=== PATIENT | female | born 1970 | race Caucasian/White ===

== ENCOUNTER 2016-05-16 16:59 | Emergency (ER) | payer MEDICAID ==
[~2016-05-16] VITALS: Ht 170.2 cm; Wt 77.1 kg
[~2016-05-16 16:59] MED LIST: HYDR-971 PO; SULF1TAB24 PO
[2016-05-16 19:11] LABS: BILIRUBIN,URINE NEGATIVE (NEG); GLUCOSE,URINE NEGATIVE (NEG); NITRITE,URINE NEGATIVE (NEG); PH,URINE 6.5; PROTEIN,URINE NEGATIVE (NEG-TRACE); UROBILINOGEN,URINE 0.2 mg/dL (0.2 mg/dL)
[2016-05-16] MEDS: FENTANYL PF 100 MCG/2 ML VIAL. IV PRN ×3 (19:15→20:35)
[2016-05-16 19:18] LABS: BACTERIA,URINE FEW /HPF (0-FEW); RBC,URINE OCC /HPF (0-2); SQUAMOUS EPITHELIAL CELL,UR FEW /LPF; WBC,URINE 0 /HPF (0-4)
[2016-05-16 19:23] LABS: BASO # 0.1 x10^3/uL (0.0-0.2); BASO % 1 % (0-3); EOS % 2 % (0-3); HEMATOCRIT 38.7 % (36.0-47.0); HEMOGLOBIN 12.9 g/dL (12.0-15.5); LYMPH # 2.3 x10^3/uL (1.0-4.8); LYMPH % 39 % (24-48); MEAN CORPUSCULAR HEMOGLOBIN 29 pg (25-35); MEAN CORPUSCULAR HGB CONC 33 g/dL (31-37); MEAN CORPUSCULAR VOLUME 87 fL (79-100); MONO % 6 % (0-9); NEUT % 52 % (31-73); PLATELET COUNT 236 x10^3/uL (140-400); RED BLOOD COUNT 4.44 x10^6/uL (3.50-5.40); WHITE BLOOD COUNT 5.8 x10^3/uL (4.0-11.0)
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
[2016-05-16 19:34] LABS: NEG OBC SER NEG; POS OBC SER POS
[2016-05-16 19:35] LABS: CALCIUM 9.6 mg/dL (8.5-10.1); CREATININE 0.8 mg/dL (0.6-1.0); GFR 77.9; POTASSIUM 4.1 mmol/L (3.5-5.1)
[2016-05-16 19:39] LABS: PROTHROMBIN TIME PATIENT 12.7 SEC (11.7-14.0)
[2016-05-16 19:41] LABS: ALBUMIN 3.6 g/dL (3.4-5.0); ALBUMIN/GLOBULIN RATIO 0.9 (1.0-1.7); TOTAL BILIRUBIN 0.2 mg/dL (0.2-1.0); TOTAL PROTEIN 7.5 g/dL (6.4-8.2)
[2016-05-16] MEDS ORDERED: CONTRAST GIVEN MC PRN (20:00)
[2016-05-16] MEDS ORDERED: IOHEXOL 300 MG/ML 75 ML VIAL IV ONE (20:00)
--- NOTE | 2016-05-16 20:16 | RAD ---
PQRS STATEMENT One or more of the following individualized dose reduction techniques were utilized for this study: 1.Automated exposure control. 2.Adjustment of the mA and/orkVaccording to patient size. 3.Use of iterative reconstruction technique. Indication:ABD PAIN AND BLOATING, HX TUBAL LIGATION PRIOR SENT Reason: abd pain and bloating / Spl. Instructions: / History: Comparison: 05/11/2015 CT abdomen pelvis Technique: multiple contiguous axial images were obtained through the abdomen and pelvis after intravenous administration of iodinated contrast. Coronal and sagittal reformations were created. Findings: The lung bases are clear. The heart size is normal. The liver is normal in size with no focal lesions identified. The gallbladder is nondistended. The pancreas is unremarkable. The spleen and adrenal glands are within normal limits. The kidneys demonstrate no hydronephrosis or mass. The abdominal aorta is normal in caliber. There is no ascites or adenopathy. The appendix is normal. The bowel loops are normal in caliber. The urinary bladder is within normal limits. No destructive osseous lesion is identified. There is an unchanged soft tissue mass within the subcutaneous tissue of the anterior left thigh that measures 3.1 centimeters. This measured 2.8 centimeters on the previous exam from 05/11/2015. There is a left adnexal cyst measuring 3 centimeters in size likely representing an ovarian cyst. Tubal ligation clips are noted. Impression: - No ascites or inflammatory mass. - Normal appendix. - Left ovarian cyst measuring 3 centimeters. - There is a subcutaneous mass in the anterior left side measures 3.1 centimeters compared with 2.8 centimeters on the prior exam from 05/11/2015. Consider ultrasound evaluation and/or biopsy is clinically concerned. Electronically signed by: Santana Fried (May 16, 2016 20:15:45)
[2016-05-16] MEDS ORDERED: MAGNESIUM CITRATE 296 ML SOLUTION. ONE (20:51)
[2016-05-16 20:55] VITALS: BP 120/79
[2016-05-16] MEDS ORDERED: MAGNESIUM CITRATE 296 ML SOLUTION. PO ONE (21:00)
== END 2016-05-16 20:56 | disposition home or self-care (01) ==
LOC: ER 16:59
DX: K59.00 Constipation, unspecified (principal); R14.0 Abdominal distension (gaseous); R10.9 Unspecified abdominal pain; J44.9 Chronic obstructive pulmonary disease, unspecified; Z98.51 Tubal ligation status; Z90.49 Acquired absence of other specified parts of digestive tract; Z86.19 Personal history of other infectious and parasitic diseases; Z98.890 Other specified postprocedural states; Z88.5 Allergy status to narcotic agent
CPT/HCPCS: 36415; 74177; 80053; 81001; 83690; 84703; 85027; 85610; 85730; 96374; 96376; 99285; J3010; Q9967

== ENCOUNTER 2016-05-23 17:15 | Emergency (ER) | payer MEDICAID, OTHER ==
[~2016-05-23] VITALS: Ht 170.2 cm; Wt 77.1 kg
[2016-05-23 17:43] VITALS: BP 156/75
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
[2016-05-23 18:17] LABS: OBC FLU VALID
[2016-05-23] MEDS ORDERED: PROAIR RESPICL90 MCG IH (19:02)
[2016-05-23] MEDS ORDERED: ACET-704 PO (19:02)
[2016-05-23] MEDS ORDERED: BENZ100C PO (19:02)
[2016-05-23] MEDS ORDERED: AZIT250T PO (19:02)
--- NOTE | 2016-05-24 08:55 | RAD ---
Chest, 2 views, 05/23/2016: History: Cough Comparison is made to a study from 03/25/2011. The heart size and pulmonary vascularity are normal. No pulmonary infiltrates are seen. There is no evidence of pleural fluid. IMPRESSION: No acute cardiopulmonary abnormality is detected.
== END 2016-05-23 19:05 | disposition home or self-care (01) ==
LOC: ER 17:15
DX: J20.9 Acute bronchitis, unspecified (principal); J44.9 Chronic obstructive pulmonary disease, unspecified; F41.9 Anxiety disorder, unspecified; Z88.5 Allergy status to narcotic agent; Z86.19 Personal history of other infectious and parasitic diseases; Z90.49 Acquired absence of other specified parts of digestive tract
CPT/HCPCS: 71020; 87804; 99285-25

== ENCOUNTER 2016-07-10 11:50 | Emergency (ER) | payer OTHER ==
[~2016-07-10] VITALS: Ht 170.2 cm; Wt 80.3 kg
[~2016-07-10 11:50] MED LIST changes: +ACET-704 PO; +AZIT250T PO; +BENZ100C PO; +PROAIR RESPICL90 MCG IH
[2016-07-10 13:43] LABS: BILIRUBIN,URINE NEGATIVE (NEG); GLUCOSE,URINE NEGATIVE (NEG); NITRITE,URINE NEGATIVE (NEG); PROTEIN,URINE NEGATIVE (NEG-TRACE); UROBILINOGEN,URINE 0.2 mg/dL (0.2 mg/dL)
[2016-07-10 13:53] LABS: BASO # 0.1 x10^3/uL (0.0-0.2); BASO % 1 % (0-3); EOS % 3 % (0-3); HEMATOCRIT 40.7 % (36.0-47.0); HEMOGLOBIN 13.5 g/dL (12.0-15.5); LYMPH % 47 % (24-48); MEAN CORPUSCULAR HEMOGLOBIN 29 pg (25-35); MEAN CORPUSCULAR HGB CONC 33 g/dL (31-37); MEAN CORPUSCULAR VOLUME 88 fL (79-100); MONO % 8 % (0-9); NEUT % 41 % (31-73); PLATELET COUNT 202 x10^3/uL (140-400); RED BLOOD COUNT 4.65 x10^6/uL (3.50-5.40); RED CELL DISTRIBUTION WIDTH 13.7 % (11.5-14.5); WHITE BLOOD COUNT 6.4 x10^3/uL (4.0-11.0)
[2016-07-10 13:56] LABS: BACTERIA,URINE 0 /HPF (0-FEW); RBC,URINE 0 /HPF (0-2); SQUAMOUS EPITHELIAL CELL,UR OCC /LPF; WBC,URINE 0 /HPF (0-4)
[2016-07-10 13:58] LABS: NEG OBC UR NEG
[2016-07-10 13:59] LABS: POS OBC UR POS
[2016-07-10] MEDS ORDERED: ONDANSETRON PF 4 MG/2 ML VIAL. IV ONE (14:00)
[2016-07-10] MEDS ORDERED: IV NORMAL SALINE 1000ML BAG 1,000 ML IV SCH (14:00)
[2016-07-10] MEDS ORDERED: CONTRAST GIVEN MC PRN (14:00)
[2016-07-10 14:03] LABS: CALCIUM 9.6 mg/dL (8.5-10.1); CREATININE 0.7 mg/dL (0.6-1.0); GFR 90.9; POTASSIUM 3.8 mmol/L (3.5-5.1); PROTHROMBIN TIME PATIENT 12.4 SEC (11.7-14.0)
[2016-07-10 14:08] LABS: TOTAL BILIRUBIN 0.3 mg/dL (0.2-1.0); TOTAL PROTEIN 8.2 g/dL (6.4-8.2)
[2016-07-10] MEDS ORDERED: IOHEXOL 240 MG/ML 50ML VIAL. PO ONE (14:15)
[2016-07-10] MEDS ORDERED: IOHEXOL 300 MG/ML 75 ML VIAL IV ONE (14:15)
[2016-07-10] MEDS ORDERED: MORPHINE SULFATE 4 MG/ML DISP.SYRIN. IV ONE ×2 (14:40→15:30)
[2016-07-10 14:48] LABS: NEG OBC FOB NEG; POS OBC FOB POS
[2016-07-10] MEDS ORDERED: IV DEXTROSE 10% 500 ML IV ONE (15:30)
[2016-07-10 15:41] VITALS: BP 114/77
--- NOTE | 2016-07-10 15:44 | RAD ---
CT of the abdomen and pelvis with contrast, 05/16/2016: History: Lower abdominal pain, previous liver cancer Multidetector CT imaging was performed following oral and IV administration of contrast. Comparison made to a study from 05/16/2016. There is no evidence of a hepatic mass or bile duct dilatation. The left lobe of liver is prominent. No gallbladder abnormality is seen. The pancreas is unremarkable. The spleen is of normal size. There are prominent extrarenal pelves bilaterally. No true hydronephrosis is seen. The abdominal aorta is of normal caliber. No abdominal or pelvic adenopathy is seen. There are surgical clips in the pelvis. There is a 2.5 cm cyst in the left ovary, similar to that seen on the previous study. The bowel loops are nondilated. There is a moderate amount of stool scattered throughout the colon. The appendix is not clearly visualized. No dilated appendix or pericecal inflammatory process is seen. No free fluid or free air is evident in the abdomen or pelvis. A 3.1 cm subcutaneous mass along the anterior aspect of the left hip is unchanged and likely represents a skin lesion such as a sebaceous cyst. IMPRESSION: 1. Unchanged small left ovarian cyst. 2. Stable subcutaneous mass at the left hip. 3. No acute abdominal abnormality is detected. PQRS Compliance Statement: One or more of the following individualized dose reduction techniques were utilized for this examination: 1. Automated exposure control 2. Adjustment of the mA and/or kV according to patient size 3. Use of iterative reconstruction technique
[2016-07-10] MEDS ORDERED: ONDA4TAB10 SL (16:11)
[2016-07-10] MEDS ORDERED: HYDR-971 PO (16:11)
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
== END 2016-07-10 16:20 | disposition home or self-care (01) ==
LOC: ER 11:50
DX: R10.30 Lower abdominal pain, unspecified (principal); R11.0 Nausea; R19.7 Diarrhea, unspecified; J44.9 Chronic obstructive pulmonary disease, unspecified; F17.200 Nicotine dependence, unspecified, uncomplicated; Z98.51 Tubal ligation status; Z90.49 Acquired absence of other specified parts of digestive tract; Z98.890 Other specified postprocedural states; Z88.6 Allergy status to analgesic agent
CPT/HCPCS: 36415; 74177; 80053; 81001; 81025; 82274; 82947; 83690; 85027; 85610; 85730; 96361; 96374; 96375; 96376; 99285; J2270; J2405; J7030; Q9966; Q9967

== ENCOUNTER 2016-07-15 12:28 | Emergency (ER) | payer OTHER ==
[~2016-07-15] VITALS: Ht 170.2 cm; Wt 80.3 kg
[~2016-07-15 12:28] MED LIST changes: +ONDA4TAB10 SL
[2016-07-15 12:46] VITALS: BP 114/77
[2016-07-15] MEDS ORDERED: IV NORMAL SALINE 1000ML BAG 1,000 ML IV ONE (13:15)
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
== END 2016-07-15 13:25 | disposition left against medical advice (07) ==
LOC: ER 12:28
DX: R10.30 Lower abdominal pain, unspecified (principal); J44.9 Chronic obstructive pulmonary disease, unspecified; Z90.49 Acquired absence of other specified parts of digestive tract; Z98.51 Tubal ligation status; Z88.6 Allergy status to analgesic agent
CPT/HCPCS: 99281

== ENCOUNTER 2016-08-23 19:51 | Emergency (ER) | payer OTHER ==
[2016-08-23 20:03] VITALS: BP 121/79
[2016-08-23] MEDS: predniSONE 20 MG TABLET PO ONE (20:45)
[2016-08-23] MEDS: BENZONATATE 100 MG CAPSULE. PO ONE (20:45)
[2016-08-23] MEDS: IPRATRPIUM/ALBUTEROL 0.5/2.5MG 3 ML NEBU. NEB ONE (21:08)
[2016-08-23] MEDS ORDERED: BENZ100C PO (21:29)
[2016-08-23] MEDS ORDERED: PRED50TA PO (21:29)
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
--- NOTE | 2016-08-24 07:48 | RAD ---
Chest, 2 views, 08/23/2016: History: Flulike symptoms, cough Comparison is made to a study from 05/23/2016. The heart size and pulmonary vascularity are normal. No pulmonary infiltrates are seen. There is no evidence of pleural fluid. IMPRESSION: No acute cardiopulmonary abnormality is detected.
== END 2016-08-23 21:40 | disposition home or self-care (01) ==
LOC: ER 19:51
DX: J20.9 Acute bronchitis, unspecified (principal); J44.9 Chronic obstructive pulmonary disease, unspecified; F41.9 Anxiety disorder, unspecified; F17.200 Nicotine dependence, unspecified, uncomplicated; Z88.6 Allergy status to analgesic agent
CPT/HCPCS: 71020; 94250; 94640; 99284; J7512; J7620

== ENCOUNTER 2016-11-18 14:15 | Emergency (ER) | payer OTHER ==
[~2016-11-18] VITALS: Ht 170.2 cm; Wt 80.3 kg
[~2016-11-18 14:15] MED LIST changes: +PRED50TA PO
[2016-11-18 14:27] VITALS: BP 123/82
[2016-11-18] MEDS ORDERED: diphenhydrAMINE HCL 25 MG CAPSULE PO ONE (15:15)
[2016-11-18] MEDS ORDERED: DIPHENHYDRAMINE/ZINC ACETATE 2%/0.1% TOPICAL CREAM 28GM TUBE. TP ONE (15:15)
[2016-11-18] MEDS ORDERED: DIPH25CA58 PO (15:24)
[2016-11-18] MEDS ORDERED: DIPH30CR TP (15:24)
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
== END 2016-11-18 15:55 | disposition home or self-care (01) ==
LOC: ER 14:15
DX: L29.9 Pruritus, unspecified (principal); F41.9 Anxiety disorder, unspecified; J44.9 Chronic obstructive pulmonary disease, unspecified; Z86.19 Personal history of other infectious and parasitic diseases; Z90.49 Acquired absence of other specified parts of digestive tract; Z98.51 Tubal ligation status; Z88.5 Allergy status to narcotic agent
CPT/HCPCS: 99283; Q0163

== ENCOUNTER 2017-01-16 11:29 | Emergency (ER) | payer OTHER ==
[~2017-01-16 11:29] MED LIST changes: +DIPH25CA58 PO; +DIPH30CR TP
[2017-01-16 11:33] VITALS: BP 121/80
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
[2017-01-16] MEDS ORDERED: IBUPROFEN 800 MG TABLET. PO ONE (12:30)
[2017-01-16] MEDS ORDERED: CYCLOBENZAPRINE 10 MG TABLET. PO ONE (12:30)
--- NOTE | 2017-01-16 13:18 | RAD ---
Indication fall. Pain. AP and lateral views of the thoracic spine were obtained as well as a swimmer's view. Vertebral height alignment and disc spaces are normal. No fracture or significant bony finding is seen. There are no significant degenerative changes apparent on plain films. IMPRESSION: Normal plain films of the thoracic spine
--- NOTE | 2017-01-16 13:20 | RAD ---
Indication fall, pain. Lateral AP and odontoid views of the cervical spine were obtained. C1-T2 are identified. Vertebral height is well maintained. There are small osteophytes seen at C5-6. An acute bony finding is not seen. The prevertebral soft tissues appear normal. IMPRESSION: Minimal spondylitic change. No acute finding seen
[2017-01-16] MEDS ORDERED: CYCL10TA2 PO (13:42)
[2017-01-16] MEDS ORDERED: IBUP-1060 PO (13:42)
== END 2017-01-16 13:48 | disposition home or self-care (01) ==
LOC: ER 11:29
DX: M54.6 Pain in thoracic spine (principal); M54.5 Low back pain; M54.2 Cervicalgia; J44.9 Chronic obstructive pulmonary disease, unspecified; Z90.49 Acquired absence of other specified parts of digestive tract; Z98.51 Tubal ligation status; Z88.6 Allergy status to analgesic agent; W17.89XA Other fall from one level to another, initial encounter; Y93.89 Activity, other specified; Y99.8 Other external cause status; Y92.028 Other place in mobile home as the place of occurrence of the external cause
CPT/HCPCS: 72040; 72072; 99284

== ENCOUNTER 2017-01-28 22:36 | Emergency (ER) | payer OTHER ==
[~2017-01-28] VITALS: Ht 167.6 cm; Wt 80.3 kg
[~2017-01-28 22:36] MED LIST changes: +CYCL10TA2 PO; +IBUP-1060 PO
[2017-01-28 22:48] VITALS: BP 136/75
[2017-01-28] MEDS ORDERED: SMZ/TMP 800/160MG TABLET. PO ONE (23:00)
[2017-01-28] MEDS ORDERED: CYCLOBENZAPRINE 10 MG TABLET. PO ONE (23:00)
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
[2017-01-28] MEDS ORDERED: SULF1TAB24 PO (23:29)
[2017-01-28] MEDS ORDERED: CYCL10TA2 PO (23:29)
--- NOTE | 2017-01-29 08:26 | RAD ---
Right shoulder radiograph 01/28/2017 Indication: Shoulder pain Comparison: None available Technique: 3 views of the right shoulder are provided. Findings: There is no acute fracture or dislocation. No joint space narrowing. No soft tissue swelling. No osseous erosion or soft tissue gas. Bone mineralization is within normal limits. Impression: No acute fracture or dislocation.
== END 2017-01-28 23:52 | disposition home or self-care (01) ==
LOC: ER 22:36
DX: S46.911A Strain of unspecified muscle, fascia and tendon at shoulder and upper arm level, right arm, initial encounter (principal); L03.811 Cellulitis of head [any part, except face]; J44.9 Chronic obstructive pulmonary disease, unspecified; Z86.19 Personal history of other infectious and parasitic diseases; Z98.51 Tubal ligation status; Z90.49 Acquired absence of other specified parts of digestive tract; Z88.6 Allergy status to analgesic agent; X50.9XXA Other and unspecified overexertion or strenuous movements or postures, initial encounter; Y93.89 Activity, other specified; Y99.8 Other external cause status; Y92.89 Other specified places as the place of occurrence of the external cause
CPT/HCPCS: 73030; 99284

== ENCOUNTER 2017-05-21 14:59 | Emergency (ER) | payer OTHER ==
[2017-05-21 16:57] LABS: URINE HCG POC HCG NEGATIVE (Negative)
[2017-05-21 17:12] LABS: ADD MAN DIFF? NO
[2017-05-21 17:14] LABS: BILIRUBIN,URINE NEGATIVE (NEG); CLARITY,URINE CLEAR; COLOR,URINE YELLOW; GLUCOSE,URINE NEGATIVE (NEG); NITRITE,URINE NEGATIVE (NEG); PH,URINE 6.5; PROTEIN,URINE NEGATIVE (NEG-TRACE); UROBILINOGEN,URINE 0.2 mg/dL (0.2 mg/dL)
[2017-05-21 17:19] LABS: BASO # 0.1 x10^3/uL (0.0-0.2); BASO % 1 % (0-3); EOS # 0.2 x10^3/uL (0.0-0.7); EOS % 3 % (0-3); HEMATOCRIT 37.6 % (36.0-47.0); HEMOGLOBIN 12.5 g/dL (12.0-15.5); LYMPH # 2.6 x10^3/uL (1.0-4.8); LYMPH % 41 % (24-48); MEAN CORPUSCULAR HEMOGLOBIN 29 pg (25-35); MEAN CORPUSCULAR HGB CONC 33 g/dL (31-37); MEAN CORPUSCULAR VOLUME 87 fL (79-100); MONO # 0.4 x10^3/uL (0.0-1.1); MONO % 6 % (0-9); NEUT # 3.2 x10^3uL (1.8-7.7); NEUT % 50 % (31-73); PLATELET COUNT 183 x10^3/uL (140-400); RED BLOOD COUNT 4.33 x10^6/uL (3.50-5.40); RED CELL DISTRIBUTION WIDTH 13.5 % (11.5-14.5); WHITE BLOOD COUNT 6.4 x10^3/uL (4.0-11.0)
[2017-05-21] MEDS: ONDANSETRON PF 4 MG/2 ML VIAL. IV ×2 (17:27)
[2017-05-21] MEDS: KETOROLAC 30 MG/ML INJ. IV ×2 (17:27)
[2017-05-21] MEDS: IV NORMAL SALINE 1000ML BAG 1,000 ML IV ×2 (17:28)
[2017-05-21] MEDS ORDERED: CONTRAST GIVEN MC ×2 (17:30)
[2017-05-21 17:33] LABS: BACTERIA,URINE 0 /HPF (0-FEW); RBC,URINE 0 /HPF (0-2); SQUAMOUS EPITHELIAL CELL,UR FEW /LPF; WBC,URINE 0 /HPF (0-4)
[2017-05-21 17:44] LABS: ANION GAP 9 (6-14); BLOOD UREA NITROGEN 13 mg/dL (7-20); BUN/CREATININE RATIO 16 (6-20); CALCIUM 9.2 mg/dL (8.5-10.1); CARBON DIOXIDE 27 mmol/L (21-32); CHLORIDE 104 mmol/L (98-107); CREATININE 0.8 mg/dL (0.6-1.0); GFR 77.6; GLUCOSE 94 mg/dL (70-99); POTASSIUM 3.9 mmol/L (3.5-5.1); SODIUM 140 mmol/L (136-145)
[2017-05-21 17:52] LABS: ALBUMIN 3.4 g/dL (3.4-5.0); ALBUMIN/GLOBULIN RATIO 0.9 (1.0-1.7); ALK PHOS 76 U/L (46-116); ALT (SGPT) 63 U/L (14-59); AST (SGOT) 37 U/L (15-37); LIPASE 174 U/L (73-393); TOTAL BILIRUBIN 0.1 mg/dL (0.2-1.0); TOTAL PROTEIN 7.4 g/dL (6.4-8.2)
[2017-05-21] MEDS: IOHEXOL 300 MG/ML 100ML VIAL. IV ×2 (18:06)
[2017-05-21] MEDS: fentaNYL PF VIAL 100 MCG/2 ML VIAL IV ×2 (18:43)
== END 2017-05-21 20:54 | disposition home or self-care (01) ==
LOC: ER 14:59
DX: N83.202 Unspecified ovarian cyst, left side (principal); J44.9 Chronic obstructive pulmonary disease, unspecified; Z98.51 Tubal ligation status; Z90.49 Acquired absence of other specified parts of digestive tract; Z86.19 Personal history of other infectious and parasitic diseases; Z88.6 Allergy status to analgesic agent
CPT/HCPCS: 36415; 74177; 76830; 76856; 80053; 81001; 81025; 83690; 85025; 96361; 96374; 96375; 99285-25; J1885; J2405; J3010; J7030; Q9967

== ENCOUNTER 2021-01-28 10:50 | Emergency (ER) | payer MEDICAID, OTHER ==
[~2021-01-28] VITALS: Ht 160 cm; Wt 86.3 kg
[~2021-01-28 10:50] MED LIST changes: +HYDR-3164 PO; -HYDR-971 PO
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
--- NOTE | 2021-01-28 11:56 | RAD ---
AP chest. HISTORY: Chest pressure, cough, fever, chills AP view was taken of the chest. The right lung infiltrate possibly in the superior segment of the rig ht lower lobe superimposed on the right hilum. Follow-up study would be of benefit to exclude a mass. Heart is normal in size. There is no effusion. IMPRESSION: 1. Right lung infiltrate suggesting pneumonia. Follow-up recommended. Electronically signed by: Mayank Miramontes MD (01/28/2021 11:54 AM) [facility]
[2021-01-28 12:09] LABS: BASO # 0.1 x10^3/uL (0.0-0.2); BASO % 1 % (0-3); EOS % 0 % (0-3); HEMATOCRIT 34.9 % (36.0-47.0); HEMOGLOBIN 11.8 g/dL (12.0-15.5); LYMPH % 11 % (24-48); MEAN CORPUSCULAR HEMOGLOBIN 28 pg (25-35); MEAN CORPUSCULAR HGB CONC 34 g/dL (31-37); MEAN CORPUSCULAR VOLUME 83 fL (79-100); MONO # 0.7 x10^3/uL (0.0-1.1); MONO % 8 % (0-9); NEUT # 7.4 x10^3/uL (1.8-7.7); NEUT % 80 % (31-73); PLATELET COUNT 218 x10^3/uL (140-400); RED BLOOD COUNT 4.21 x10^6/uL (3.50-5.40); RED CELL DISTRIBUTION WIDTH 14.8 % (11.5-14.5); WHITE BLOOD COUNT 9.3 x10^3/uL (4.0-11.0)
[2021-01-28 12:19] LABS: CALCIUM 8.7 mg/dL (8.5-10.1); GFR 58.9; POTASSIUM 3.1 mmol/L (3.5-5.1)
[2021-01-28 12:25] LABS: ALBUMIN 3.4 g/dL (3.4-5.0); ALBUMIN/GLOBULIN RATIO 0.7 (1.0-1.7); TOTAL BILIRUBIN 0.6 mg/dL (0.2-1.0); TOTAL PROTEIN 8.2 g/dL (6.4-8.2)
[2021-01-28 12:30] LABS: INFLUENZA A PATIENT NEGATIVE (NEGATIVE); INFLUENZA B PATIENT NEGATIVE (NEGATIVE)
[2021-01-28] MEDS ORDERED: DOXY100C3 PO (13:00)
[2021-01-28] MEDS ORDERED: AMOX1TAB61 PO (13:00)
--- NOTE | 2021-01-28 13:04 | EKG ---
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
[2021-01-28 13:10] VITALS: BP 110/72
--- NOTE | 2021-01-30 11:07 | NUR ---
IP: Informed pt of negative covid test. Pt verbalized understanding.
== END 2021-01-28 13:57 | disposition home or self-care (01) ==
LOC: ER 10:50
DX: J18.9 Pneumonia, unspecified organism (principal); Z20.822 Contact with and (suspected) exposure to COVID-19; J44.9 Chronic obstructive pulmonary disease, unspecified; F17.200 Nicotine dependence, unspecified, uncomplicated; Z88.6 Allergy status to analgesic agent
CPT/HCPCS: 36415; 71045; 80053; 83880; 84484; 85025; 87426; 87804; 93005; 99285; U0003; U0005